=== PATIENT | male | born 1965 | race African-American/Black ===

== ENCOUNTER 2019-10-13 04:02 | Emergency (ER) | payer OTHER, SELFPAY ==
--- NOTE | ~2019-10-13 | CT_ITS ---
EXAMINATION: CT abdomen pelvis w con DATE: 10/13/2019 06:03 INDICATION: Right flank pain. Nausea and vomiting. Nephrolithiasis. TECHNIQUE: Computed tomography (CT) of the abdomen and pelvis was performed without intravenous contr ast. Automated exposure control and iterative reconstruction technique were employed. The dose-length product was 616.13 mGy-cm. COMPARISON: None FINDINGS: Mild dependent atelectasis in the bilateral lower lobes. Heart size is normal. No pericardial or pleu ral effusion. Liver, gallbladder, spleen, pancreas, bilateral adrenal glands and left kidney are norm al. 3 mm stone in the distalmost right ureter within 1 cm the ureterovesicular junction which results in mild right hydroureteronephrosis and minimally delayed right nephrogram. Dense metallic streak ar tifact from bilateral resurfacing type total hip arthroplasties obscures the region of the prostate a nd inferior bladder. The visualized portions bladder is unremarkable. Bowels including the appendix a re normal. Tiny fat-containing umbilical hernia. No free intraperitoneal gas or fluid. No pathologica lly enlarged abdominal or pelvic lymphadenopathy. IMPRESSION: 1. Obstructing 3 mm stone near the right ureterovesicular junction resulting in mild right hydrourete ronephrosis. Reviewed, dictated and finalized at location A. IMPRESSION: 1. Obstructing 3 mm stone near the right ureterovesicular junction resulting in mild right hydroureteronephrosis.
[2019-10-13 04:06] VITALS: BP 134/90; PULSE 67; RESP 18; TEMP 36.9; O2SAT 97
--- NOTE | 2019-10-13 04:25 | ED.ABDPAIN ---
HPI - Abdominal Pain General Chief Complaint: Abdominal Pain Stated Complaint: right flank pain Time Seen by Provider: 10/13/19 04:23 History of Present Illness HPI narrative: Patient presents with right flank pain for 2 days. He last had a kidney stone several years ago. The pain comes and goes. Currently has a 3 out of 10. Is on the right posterior flank and radiates to the anterior. Sometimes he feels the pain in his testicle. He has had nausea and vomiting. He does not have any chills sweats or fever. He has not seen any blood in his urine. He has had surgery in both of his hips and his biceps reconnected. He does not smoke cigarettes, he occasionally drinks alcohol, does not do marijuana. He works in maintenance. MD elicited complaint: abdominal pain and flank pain Pertinent past history: kidney stones Onset (ago): day(s) Pain Consistency: intermittent Location: RLQ Severity: mild Radiation: RLQ Exacerbating factors: nothing Relieving factors: nothing Associated symptoms: nausea and vomiting Related Data Home Medications Medication Instructions Recorded Confirmed meloxicam 15 mg tablet 15 mg PO DAILY 01/25/19 omeprazole 40 mg capsule,delayed 40 mg PO BID 01/25/19 release tamsulosin 0.4 mg capsule 0.4 mg PO DAILY 01/25/19 Allergies Allergy/AdvReac Type Severity Reaction Status Date / Time Penicillins Allergy Unknown Hives Verified 10/13/19 04:06 Review of Systems Review of Systems: Narrative: CONSTITUTIONAL: Denies fever, chills, or sweats. EYES: Denies visual changes, redness, or discharge. ENT: Denies rhinorrhea, congestion, sore throat, or otalgia. CARDIOVASCULAR: Denies chest pain, palpitations, or edema. RESPIRATORY: Denies cough or dyspnea. GASTROINTESTINAL: He has abdominal pain, nausea, vomiting, but not diarrhea. GENITOURINARY: Denies dysuria or hematuria. SKIN: Denies rash or itching. MUSCULOSKELETAL: Denies back pain, joint pain, or myalgia. NEUROLOGIC: Denies headache, numbness, or weakness. . All systems reviewed & are unremarkable except as noted in HPI and below PMFSH Past Medical History Medical History (Updated 10/13/19 @ 06:53 by Elvie Meza MD) Chronic pain of both feet Left hip pain Left knee pain Wellness examination Surgical History Surgical History History of hip surgery Social History Social History Social History: Smoking status: Never smoker Second hand tobacco smoke exposure: No Alcohol intake: current Substance use: never Substance use type: does not use Gender identity (if verbalized by the patient): Male Exam Narrative: Exam Narrative: GENERAL: Well-appearing, well-nourished, and in no acute distress. HEAD: Normocephalic, atraumatic. EYES: PERRLA and EOMI. ENT: Nares clear, no rhinorrhea or epistaxis. Mucous membranes moist. NECK: Supple. CHEST: Clear to auscultation. No respiratory distress. HEART: Regular rate and rhythm. No murmur heard. Normal peripheral pulses. ABDOMEN: Soft, nontender, nondistended, normal active bowel sounds. EXTREMITIES: Normal range of motion. No edema. SKIN: Warm, dry, no rash. NEURO: No focal deficits. Alert and oriented x3. PSYCH: Normal mood and affect. Course Reevaluation(s) Reevaluation #1: Explained to the patient about his 4 mm kidney stone at the bladder junction. He has strained his urine for the kidney stone before. Give him Dr. Berrios to follow-up Date: 10/13/19 Time: 06:54 Vital Signs Vital signs: Vital Signs Temperature 98.5 F 10/13/19 04:06 Pulse Rate 67 10/13/19 04:06 Respiratory Rate 18 10/13/19 04:06 Blood Pressure 134/90 10/13/19 04:06 Pulse Oximetry 97 10/13/19 04:06 Temperature 98.5 F 10/13/19 04:06 Pulse Rate 67 10/13/19 04:06 Respiratory Rate 18 10/13/19 04:06 Blood Pressure 134/90 10/13/19 04:06 Pulse Oximetry 97 10/13/19 04:
[2019-10-13] MEDS: SODIUM CHLORIDE 0.9% IV 1,000 ML 999 ML IV CONT ×2 (04:40→05:30)
[2019-10-13 04:44] LABS: Eosinophils Absolute Auto 0.1 K/mm3 (0-0.3); Eosinophils Percent Auto 3.3 % (0-4.4); Hematocrit 44.7 % (42.0-52.0); Immature Granulocyte Absolute 0.01 K/mm3 (0.00-0.031); Immature Granulocyte Percent A 0.2 % (0-0.5); Lymphocytes Absolute Auto 2.09 K/mm3 (0.9-3.2); Mean Corpuscular HGB Conc 33.6 g/dl (32-36); Mean Corpuscular Hemoglobin 29.4 pg (26-34); Mean Corpuscular Volume 87.6 fl (80-100); Mean Platelet Volume 9.1 fl (7.4-10.4); Monocytes Absolute Auto 0.3 K/mm3 (0.1-0.6); Monocytes Percent Auto 7.2 % (2.6-8.5); Neutrophils Absolute Auto 1.6 K/mm3 (1.3-6.7); Neutrophils Percent Auto 38.3 % (45.5-73.1); Platelet Count Result 208 k/mm3 (150-375); Red Cell Distribution Width 12.7 % (11.5-14.5); White Blood Count 4.2 K/mm3 (4.5-10.0)
[2019-10-13 04:49] LABS: Add Urine Microscopic? YES; Appearance Urine Clear (Clear); Bilirubin Urine Negative (Negative); Blood Urine 3+ (Negative); Color Urine Yellow (Yellow); Glucose Urine UA Negative (Negative); Ketones Urine Negative (Negative); Leukocyte Esterase Ur Negative LEU/UL (Negative); Mucus Urine Moderate /lpf; Nitrate Urine Negative (Negative); Protein Urine 1+ mg/dL (Negative); RBC Urine >75 /hpf (0-2); Specific Grav Ur 1.024 (1.001-1.035); Urobilinogen Urine Negative mg/dL (<2.0); WBC Urine 0-3 /hpf
[2019-10-13 04:57] LABS: Alanine Aminotransferase 23 U/L (4-50); Albumin Level 4.2 g/dL (3.5-5.1); Alkaline Phosphatase 74 U/L (38-126); Anion Gap 7 mmol/L (8-16); Aspartate Amino Transferase 28 U/L (17-59); Bilirubin,Total 0.4 mg/dL (0.2-1.3); Blood Urea Nitrogen 14 mg/dL (9-20); Calcium 9.1 mg/dL (8.4-10.2); Carbon Dioxide 26 mmol/L (22-30); Chloride 107 mmol/L (98-107); Estimated CRCL calculation 71 ml/min; Estimated Glomerular Filt Rate > 60; Glucose 97 mg/dL (75-110); Sodium 140 mmol/L (137-145)
[2019-10-13] MEDS: TAMSULOSIN HCL 0.4 MG CAPSULE PO (05:30)
[2019-10-13 06:55] VITALS: BP 134/79; PULSE 78; RESP 18; TEMP 36.7; O2SAT 100
== END 2019-10-13 06:56 | disposition home or self-care (01) ==
PROVIDERS: Emergency Provider Emergency Medicine; PCP Family Medicine
DX: N13.2 Hydronephrosis with renal and ureteral calculous obstruction (principal); Z87.442 Personal history of urinary calculi
CPT/HCPCS: 36415; 74177; 80053; 81001; 85025; 96361; 96365; 99284; A9270; J0696; J7030; Q9967